=== PATIENT | male | born 1985 | race Caucasian/White ===

== ENCOUNTER 2025-04-13 13:06 | Emergency (ER) | payer OTHER ==
[~2025-04-13] VITALS: Ht 182.9 cm; Wt 100.8 kg
[2025-04-13 13:21] VITALS: TEMP 97.8
[2025-04-13] MEDS ORDERED: METO37.5 PO (13:27)
[2025-04-13] MEDS ORDERED: AMLO25TA PO (13:27)
[2025-04-13] MEDS ORDERED: BUSP5TA PO (13:27)
[2025-04-13] MEDS ORDERED: HYDR-3363 PO (13:27)
[2025-04-13] MEDS ORDERED: LISI30TA4 PO (13:27)
[2025-04-13] MEDS ORDERED: PANT20TA6 PO (13:27)
[2025-04-13] MEDS ORDERED: NITROGLYCERIN 0.4MG SUBL TABLET SL PRN (13:45)
[2025-04-13] MEDS: LIDOCAINE VISCOUS 2% SOLN 15 ML UDC PO ONE (13:53)
[2025-04-13] MEDS: MAALOX 30 ML SUSP *UDC PO ONE (13:53)
[2025-04-13 13:58] LABS: BASO # 0.0 10^3/uL (0.0-0.2); BASO % 0.4 % (0.0-1.0); EOS # 0.0 10^3/uL (0.0-0.5); EOS % 0.4 % (0.0-3.0); LYMPH # 1.3 10^3/uL (1.5-5.0); LYMPH % 26.2 % (24.0-44.0); MONO # 0.4 10^3/uL (0.0-0.8); MONO % 7.2 % (2.0-8.0); NEUTROPHILS # 3.2 10^3/uL (1.5-8.5); NEUTROPHILS % 65.6 % (36.0-66.0); PLATELET COUNT, AUTOMATED 236 10^3/uL (150-450)
[2025-04-13 14:26] LABS: ALT/SGPT 26 U/L (7.0-40); AST/SGOT 22 U/L (<34); CALCIUM LEVEL 9.7 MG/DL (8.5-10.1); CARBON DIOXIDE LEVEL 24 MMOL/L (20-31); CHLORIDE LEVEL 107 MMOL/L (98-107); CK-MB VALUE MASS < 1.0 NG/ML (<3.6); CREATININE FOR GFR 0.98 MG/DL (0.70-1.30); GLOMERULAR FILTRATION RATE > 90.0 (>60); MAGNESIUM LEVEL 2.2 MG/DL (1.8-2.4); PHOSPHORUS LEVEL 3.1 MG/DL (2.5-4.9); POTASSIUM SERUM 4.2 MMOL/L (3.5-5.1); SODIUM LEVEL 141 MMOL/L (136-145)
[2025-04-13 14:29] LABS: FREE T4 1.38 NG/DL (0.89-1.76)
[2025-04-13 14:31] LABS: CPK CREATINE PHOSPHOKINASE 107 U/L (46-171)
[2025-04-13] MEDS ORDERED: ISOVUE-370 76% 100 ML VIAL As Ordered ONE (14:48)
[2025-04-13 15:39] LABS: CK-MB VALUE MASS 1.0 NG/ML (<3.6)
[2025-04-13 15:47] LABS: CPK CREATINE PHOSPHOKINASE 91 U/L (46-171); MB/CK RELATIVE INDEX 1.09 (< OR =4)
[2025-04-13 16:00] VITALS: O2SAT 98
[2025-04-13] MEDS: LORazepam 0.5 MG TAB PO PRN (16:08)
[2025-04-13 16:10] VITALS: BP 123/78
== END 2025-04-13 16:22 | disposition home or self-care (01) ==
LOC: EDBD 13:06 → M ED 13:06
DX: R07.9 Chest pain, unspecified (principal); I10 Essential (primary) hypertension
CPT/HCPCS: 71046; 71275; 80048; 80076; 82550; 82553; 83735; 84100; 84439; 84443; 84484; 85025; 93005; 93041; 94760; 99285; Q9967

== ENCOUNTER 2025-04-16 14:34 | Emergency (ER) | payer OTHER ==
[~2025-04-16] VITALS: Ht 182.9 cm; Wt 100.0 kg
[~2025-04-16 14:34] MED LIST: AMLO25TA PO; BUSP5TA PO; HYDR-3363 PO; LISI30TA4 PO; METO37.5 PO; PANT20TA6 PO
[2025-04-16 15:15] LABS: BASO # 0.0 10^3/uL (0.0-0.2); BASO % 0.5 % (0.0-1.0); EOS # 0.0 10^3/uL (0.0-0.5); EOS % 0.5 % (0.0-3.0); LYMPH # 1.1 10^3/uL (1.5-5.0); LYMPH % 14.9 % (24.0-44.0); MONO # 0.4 10^3/uL (0.0-0.8); MONO % 5.2 % (2.0-8.0); NEUTROPHILS # 6.0 10^3/uL (1.5-8.5); NEUTROPHILS % 78.5 % (36.0-66.0); PLATELET COUNT, AUTOMATED 229 10^3/uL (150-450)
[2025-04-16 15:18] VITALS: TEMP 98.5
[2025-04-16] MEDS: LIDOCAINE VISCOUS 2% SOLN 15 ML UDC PO ONE (15:24)
[2025-04-16] MEDS: MAALOX 30 ML SUSP *UDC PO ONE (15:24)
[2025-04-16] MEDS: PANTOPRAZOLE 40MG VIAL IV ONE (15:24)
[2025-04-16 15:36] LABS: CK-MB VALUE MASS < 1.0 NG/ML (<3.6); ERYTHROCYTE SEDIMENTATION RATE 3 mm/hr (0-15)
[2025-04-16 15:39] LABS: CALCIUM LEVEL 9.8 MG/DL (8.5-10.1); CARBON DIOXIDE LEVEL 27 MMOL/L (20-31); CHLORIDE LEVEL 105 MMOL/L (98-107); CPK CREATINE PHOSPHOKINASE 115 U/L (46-171); CREATININE FOR GFR 1.11 MG/DL (0.70-1.30); GLOMERULAR FILTRATION RATE 85.0 (>60); POTASSIUM SERUM 4.2 MMOL/L (3.5-5.1); SODIUM LEVEL 142 MMOL/L (136-145)
[2025-04-16 17:00] VITALS: BP 111/64
[2025-04-16 17:01] VITALS: O2SAT 99
== END 2025-04-16 17:10 | disposition home or self-care (01) ==
LOC: M ED 14:34 → EDBD 14:34 → M ED 17:10
DX: R07.9 Chest pain, unspecified (principal); I10 Essential (primary) hypertension
CPT/HCPCS: 71045; 80048; 82550; 82553; 84484; 85025; 85652; 93005; 93041; 94760; 96374; 99285; J2470

== ENCOUNTER 2025-04-17 18:19 | Emergency (ER) | payer OTHER ==
[~2025-04-17] VITALS: Ht 182.9 cm; Wt 99.1 kg
[2025-04-18] MEDS: NS (Normal Saline) 0.9% 1,000 ML IV ONE (02:56)
[2025-04-18] MEDS: PANTOPRAZOLE 40MG VIAL IV ONE (02:56)
[2025-04-18 02:58] LABS: BASO # 0.0 10^3/uL (0.0-0.2); BASO % 0.3 % (0.0-1.0); EOS # 0.0 10^3/uL (0.0-0.5); EOS % 0.6 % (0.0-3.0); LYMPH # 1.6 10^3/uL (1.5-5.0); LYMPH % 22.9 % (24.0-44.0); MONO # 0.5 10^3/uL (0.0-0.8); MONO % 6.7 % (2.0-8.0); NEUTROPHILS # 4.8 10^3/uL (1.5-8.5); NEUTROPHILS % 69.2 % (36.0-66.0); PLATELET COUNT, AUTOMATED 227 10^3/uL (150-450)
[2025-04-18 03:29] LABS: CALCIUM LEVEL 8.8 MG/DL (8.5-10.1); CARBON DIOXIDE LEVEL 27 MMOL/L (20-31); CHLORIDE LEVEL 105 MMOL/L (98-107); CREATININE FOR GFR 1.03 MG/DL (0.70-1.30); GLOMERULAR FILTRATION RATE > 90.0 (>60); MAGNESIUM LEVEL 2.3 MG/DL (1.8-2.4); PHOSPHORUS LEVEL 3.4 MG/DL (2.5-4.9); POTASSIUM SERUM 4.2 MMOL/L (3.5-5.1); SODIUM LEVEL 143 MMOL/L (136-145)
[2025-04-18] MEDS ORDERED: PILL CUTTER 1 EACH XX ONE (05:28)
[2025-04-18 05:33] VITALS: BP 131/86
[2025-04-18] MEDS: METOPROLOL TART 25 MG TABLET PO ONE (05:33)
[2025-04-18] MEDS: ALPRAZolam 0.5 MG TAB PO ONE (05:48)
[2025-04-18 07:01] LABS: APPEARANCE, URINE HAZY (CLEAR); BACTERIA, URINE AUTO NEGATIVE (NEGATIVE); BILIRUBIN, URINE AUTO NEGATIVE (NEGATIVE); BLOOD, URINE BLOOD NEGATIVE (NEGATIVE); GLUCOSE, URINE (UA) AUTO NEGATIVE (NEGATIVE); KETONE, URINE AUTO 2+ mg/dL (NEGATIVE); LEUKOCYTE ESTERASE, URINE AUTO NEGATIVE (NEGATIVE); MUCUS, URINE SMALL (NEGATIVE); NITRITE, URINE AUTO NEGATIVE (NEGATIVE); PROTEIN, URINE AUTO NEGATIVE (NEGATIVE); RBC, URINE AUTO 0 /HPF (0-3); SPECIFIC GRAVITY URINE AUTO 1.021 (1.002-1.035); SQUAMOUS EPITHELIAL CELL UR AU 0 /HPF (0-6); UROBILINOGEN, URINE AUTO 0.2 mg/dL (0.0-2.0); WBC, URINE AUTO 0 /HPF (0-3)
[2025-04-18 07:08] LABS: CK-MB VALUE MASS < 1.0 NG/ML (<3.6)
[2025-04-18 07:09] LABS: CPK CREATINE PHOSPHOKINASE 80 U/L (46-171)
[2025-04-18 07:45] VITALS: BP 114/69; TEMP 97; O2SAT 98
[2025-04-23 11:56] LABS: BORRELIA SPECIES DNA NOT DETECTED (NOT DETECT)
== END 2025-04-18 07:58 | disposition home or self-care (01) ==
LOC: M ED 18:19
DX: T88.7XXA Unspecified adverse effect of drug or medicament, initial encounter (principal); Y92.9 Unspecified place or not applicable; Y93.9 Activity, unspecified; I10 Essential (primary) hypertension; K21.9 Gastro-esophageal reflux disease without esophagitis; F41.9 Anxiety disorder, unspecified
CPT/HCPCS: 71046; 80048; 81001; 82550; 82553; 83735; 84100; 84484; 85025; 87468; 87469; 87478; 87484; 87486; 87581; 87633; 87798; 87801; 93005; 96361; 96374; 99285; J2470

== ENCOUNTER → 2025-05-13 | Outpatient (REF) | payer OTHER ==
[2025-05-13 13:31] LABS: APPEARANCE, URINE HAZY (CLEAR); BACTERIA, URINE AUTO NEGATIVE (NEGATIVE); BILIRUBIN, URINE AUTO NEGATIVE (NEGATIVE); BLOOD, URINE BLOOD NEGATIVE (NEGATIVE); CALCIUM OXALATE CRYSTALS SMALL; GLUCOSE, URINE (UA) AUTO NEGATIVE (NEGATIVE); KETONE, URINE AUTO NEGATIVE (NEGATIVE); LEUKOCYTE ESTERASE, URINE AUTO NEGATIVE (NEGATIVE); MUCUS, URINE LARGE (NEGATIVE); NITRITE, URINE AUTO NEGATIVE (NEGATIVE); PROTEIN, URINE AUTO 1+ mg/dL (NEGATIVE); RBC, URINE AUTO 0 /HPF (0-3); SPECIFIC GRAVITY URINE AUTO 1.028 (1.002-1.035); SQUAMOUS EPITHELIAL CELL UR AU 0 /HPF (0-6); UROBILINOGEN, URINE AUTO 2.0 mg/dL (0.0-2.0); WBC, URINE AUTO 3 /HPF (0-3)
== END ==
LOC: M SMT 12:41
PROVIDERS: ATTEND Nurse Practitioner Family
DX: N40.1 Benign prostatic hyperplasia with lower urinary tract symptoms (principal)

== ENCOUNTER → 2025-05-16 | Outpatient (CLI) | payer OTHER ==
[2025-05-16 13:41] LABS: BASO # 0.0 10^3/uL (0.0-0.2); BASO % 0.6 % (0.0-1.0); EOS # 0.1 10^3/uL (0.0-0.5); EOS % 2.1 % (0.0-3.0); LYMPH # 1.2 10^3/uL (1.5-5.0); LYMPH % 35.5 % (24.0-44.0); MONO # 0.4 10^3/uL (0.0-0.8); MONO % 10.4 % (2.0-8.0); NEUTROPHILS # 1.7 10^3/uL (1.5-8.5); NEUTROPHILS % 51.4 % (36.0-66.0); PLATELET COUNT, AUTOMATED 214 10^3/uL (150-450)
[2025-05-16 13:43] LABS: RHEUMATOID FACTOR QUANT 9.4 IU/ML (<14)
[2025-05-16 13:44] LABS: ALT/SGPT 28 U/L (7.0-40); AST/SGOT 16 U/L (<34); CALCIUM LEVEL 9.1 MG/DL (8.5-10.1); CARBON DIOXIDE LEVEL 29 MMOL/L (20-31); CHLORIDE LEVEL 105 MMOL/L (98-107); CREATININE FOR GFR 1.06 MG/DL (0.70-1.30); GLOMERULAR FILTRATION RATE 89.9 (>60); POTASSIUM SERUM 4.1 MMOL/L (3.5-5.1); SODIUM LEVEL 142 MMOL/L (136-145)
[2025-05-16 13:47] LABS: THYROXINE (T4) 8.2 UG/DL (4.5-10.9); VITAMIN B12 LEVEL 434 PG/ML (211-911)
[2025-05-16 13:48] LABS: T UPTAKE 35.0 % (22.5-37.0)
[2025-05-16 13:52] LABS: ERYTHROCYTE SEDIMENTATION RATE 3 mm/hr (0-15)
[2025-05-16 14:56] LABS: ESTIMATED AVERAGE GLUCOSE 100.0 MG/DL (60-110)
[2025-05-17 10:52] LABS: T P ELECTROPHORESIS SO 6.9 g/dL (6.1-8.1)
[2025-05-17 15:01] LABS: SSA SJOGRENS A <1.0 NEG AI (<1.0 NEG); SSB SJOGRENS B <1.0 NEG AI (<1.0 NEG)
[2025-05-20 07:51] LABS: ALBUMIN SPEP 4.5 g/dL (3.8-4.8); ALPHA-1-GLOBULINS SO 0.3 g/dL (0.2-0.3); ALPHA-2-GLOBULINS SO 0.5 g/dL (0.5-0.9); BETA 2 GLOBULIN 0.4 g/dL (0.2-0.5); BETA-GLOBULIN SO 0.4 g/dL (0.4-0.6); GAMMA GLOBULINS SO 0.8 g/dL (0.8-1.7)
[2025-05-21 02:45] LABS: VITAMIN E(ALPHA TOCOPHEROL) 6.2 mg/L (5.7-19.9); VITAMIN E(GAMMA TOCOPHEROL) < 1.0 mg/L (<=4.3)
[2025-05-21 14:46] LABS: LYME TOTAL ANTIBODY CIA <= 0.90 Index (<=0.90)
[2025-05-21 18:34] LABS: VITAMIN B1 LEVEL WHOLE BLOOD 145 nmol/L (78-185)
== END ==
LOC: M PLALAB 09:32
PROVIDERS: ATTEND Psychiatry & Neurology Neurology
DX: E11.9 Type 2 diabetes mellitus without complications (principal); E53.8 Deficiency of other specified B group vitamins; E07.9 Disorder of thyroid, unspecified; A69.20 Lyme disease, unspecified

== ENCOUNTER 2025-06-20 10:42 | Day surgery (SDC) | payer OTHER ==
[~2025-06-20] VITALS: Ht 182.9 cm; Wt 93.0 kg
[~2025-06-20 10:42] MED LIST changes: +DULO1CAP4 PO; +PRED20TA PO; +SUCR1TAB56 PO; +TAMS-18 PO
[2025-06-20] MEDS ORDERED: LIDOCAINE 2% 100 MG/5 ML SDV (FOR ANES.) As Ordered ONE (11:59)
[2025-06-20 12:01] VITALS: TEMP 97.8
[2025-06-20 12:36] VITALS: BP 125/86; O2SAT 97
== END 2025-06-20 12:40 | disposition home or self-care (01) ==
LOC: M OPP 10:42
PROVIDERS: ATTEND Surgery
DX: K44.9 Diaphragmatic hernia without obstruction or gangrene (principal); Z79.52 Long term (current) use of systemic steroids; Z79.899 Other long term (current) drug therapy
CPT/HCPCS: 43239; 88305; J3010

== ENCOUNTER 2025-06-30 03:29 | Emergency (ER) | payer OTHER ==
[~2025-06-30] VITALS: Ht 182.9 cm; Wt 97.5 kg
[2025-06-30 04:11] LABS: BASO # 0.0 10^3/uL (0.0-0.2); BASO % 0.6 % (0.0-1.0); EOS # 0.1 10^3/uL (0.0-0.5); EOS % 2.8 % (0.0-3.0); LYMPH # 1.8 10^3/uL (1.5-5.0); LYMPH % 37.5 % (24.0-44.0); MONO # 0.4 10^3/uL (0.0-0.8); MONO % 7.6 % (2.0-8.0); NEUTROPHILS # 2.4 10^3/uL (1.5-8.5); NEUTROPHILS % 51.1 % (36.0-66.0); PLATELET COUNT, AUTOMATED 228 10^3/uL (150-450)
[2025-06-30] MEDS: ONDANSETRON 4MG 2ML VIAL IV ONE (04:29)
[2025-06-30 04:37] LABS: CK-MB VALUE MASS 1.1 NG/ML (<3.6)
[2025-06-30 04:39] LABS: CPK CREATINE PHOSPHOKINASE 93 U/L (46-171)
[2025-06-30 04:40] LABS: ALT/SGPT 23 U/L (7.0-40); AST/SGOT 15 U/L (<34); CALCIUM LEVEL 8.5 MG/DL (8.5-10.1); CARBON DIOXIDE LEVEL 27 MMOL/L (20-31); CHLORIDE LEVEL 106 MMOL/L (98-107); CK-MB VALUE MASS 1.2 NG/ML (<3.6); CREATININE FOR GFR 1.04 MG/DL (0.70-1.30); GLOMERULAR FILTRATION RATE > 90.0 (>60); MB/CK RELATIVE INDEX 1.29 (< OR =4); POTASSIUM SERUM 3.9 MMOL/L (3.5-5.1); SODIUM LEVEL 142 MMOL/L (136-145)
[2025-06-30 04:43] LABS: CPK CREATINE PHOSPHOKINASE 98 U/L (46-171); MB/CK RELATIVE INDEX 1.12 (< OR =4)
[2025-06-30 05:37] LABS: CK-MB VALUE MASS 1.0 NG/ML (<3.6)
[2025-06-30 05:38] LABS: CPK CREATINE PHOSPHOKINASE 88 U/L (46-171); MB/CK RELATIVE INDEX 1.13 (< OR =4)
[2025-06-30 06:46] VITALS: BP 140/98; TEMP 97.7; O2SAT 97
== END 2025-06-30 06:53 | disposition home or self-care (01) ==
LOC: M ED 03:29
DX: I10 Essential (primary) hypertension (principal); R07.89 Other chest pain; Z79.899 Other long term (current) drug therapy
CPT/HCPCS: 71045; 80048; 80076; 82550; 82553; 83880; 84484; 85025; 85379; 93005; 93041; 94760; 96374; 99285; J2405

== ENCOUNTER 2025-07-21 06:44 | Emergency (ER) | payer OTHER ==
[~2025-07-21] VITALS: Ht 182.9 cm; Wt 94.6 kg
[2025-07-21 06:46] VITALS: TEMP 97.8
[2025-07-21 08:35] LABS: BASO # 0.0 10^3/uL (0.0-0.2); BASO % 0.5 % (0.0-1.0); EOS # 0.1 10^3/uL (0.0-0.5); EOS % 1.0 % (0.0-3.0); LYMPH # 1.2 10^3/uL (1.5-5.0); LYMPH % 20.5 % (24.0-44.0); MONO # 0.4 10^3/uL (0.0-0.8); MONO % 6.6 % (2.0-8.0); NEUTROPHILS # 4.2 10^3/uL (1.5-8.5); NEUTROPHILS % 71.2 % (36.0-66.0); PLATELET COUNT, AUTOMATED 207 10^3/uL (150-450)
[2025-07-21 09:07] LABS: CK-MB VALUE MASS < 1.0 NG/ML (<3.6)
[2025-07-21 09:10] LABS: ALT/SGPT 18 U/L (7.0-40); AST/SGOT 13 U/L (<34); CALCIUM LEVEL 8.9 MG/DL (8.5-10.1); CARBON DIOXIDE LEVEL 26 MMOL/L (20-31); CHLORIDE LEVEL 107 MMOL/L (98-107); CREATININE FOR GFR 0.94 MG/DL (0.70-1.30); GLOMERULAR FILTRATION RATE > 90.0 (>60); POTASSIUM SERUM 4.0 MMOL/L (3.5-5.1); SODIUM LEVEL 144 MMOL/L (136-145)
[2025-07-21 09:11] LABS: FREE T4 1.60 NG/DL (0.89-1.76)
[2025-07-21 09:18] LABS: CPK CREATINE PHOSPHOKINASE 113 U/L (46-171)
[2025-07-21 10:31] LABS: CK-MB VALUE MASS < 1.0 NG/ML (<3.6)
[2025-07-21 10:32] LABS: CPK CREATINE PHOSPHOKINASE 111 U/L (46-171)
[2025-07-21 10:55] VITALS: BP 138/87; O2SAT 99
== END 2025-07-21 11:06 | disposition home or self-care (01) ==
LOC: M ED 06:44
DX: R07.9 Chest pain, unspecified (principal); R25.1 Tremor, unspecified; I45.10 Unspecified right bundle-branch block; J45.909 Unspecified asthma, uncomplicated; I10 Essential (primary) hypertension; Z88.8 Allergy status to other drugs, medicaments and biological substances; Z79.899 Other long term (current) drug therapy

== ENCOUNTER → 2025-08-20 | Outpatient (CLI) | payer OTHER ==
[2025-08-20 15:14] LABS: BASO # 0.0 10^3/uL (0.0-0.2); BASO % 0.5 % (0.0-1.0); EOS # 0.0 10^3/uL (0.0-0.5); EOS % 0.7 % (0.0-3.0); LYMPH # 1.3 10^3/uL (1.5-5.0); LYMPH % 31.0 % (24.0-44.0); MONO # 0.4 10^3/uL (0.0-0.8); MONO % 9.6 % (2.0-8.0); NEUTROPHILS # 2.4 10^3/uL (1.5-8.5); NEUTROPHILS % 58.0 % (36.0-66.0); PLATELET COUNT, AUTOMATED 242 10^3/uL (150-450)
[2025-08-20 15:32] LABS: ALT/SGPT 24 U/L (7.0-40); AST/SGOT 14 U/L (<34); CALCIUM LEVEL 8.7 MG/DL (8.5-10.1); CARBON DIOXIDE LEVEL 28 MMOL/L (20-31); CHLORIDE LEVEL 106 MMOL/L (98-107); CREATININE FOR GFR 1.05 MG/DL (0.70-1.30); FREE T4 1.54 NG/DL (0.89-1.76); GLOMERULAR FILTRATION RATE > 90.0 (>60); IRON (FE) 65 UG/DL (65-175); MAGNESIUM LEVEL 2.3 MG/DL (1.8-2.4); PERCENT SATURATION 18.7 % (19.7-50.0); POTASSIUM SERUM 3.8 MMOL/L (3.5-5.1); SODIUM LEVEL 143 MMOL/L (136-145)
[2025-08-20 15:33] LABS: VITAMIN B12 LEVEL 435 PG/ML (211-911)
== END ==
LOC: M PLALAB 12:32
PROVIDERS: ATTEND Internal Medicine Cardiovascular Disease
DX: I10 Essential (primary) hypertension (principal); R07.89 Other chest pain

== ENCOUNTER → 2025-09-09 | Outpatient (CLI) | payer OTHER ==
[2025-09-09 13:52] LABS: PLATELET COUNT, AUTOMATED 237 10^3/uL (150-450)
[2025-09-09 14:32] LABS: CALCIUM LEVEL 9.1 MG/DL (8.5-10.1); CARBON DIOXIDE LEVEL 30 MMOL/L (20-31); CHLORIDE LEVEL 104 MMOL/L (98-107); CREATININE FOR GFR 1.03 MG/DL (0.70-1.30); GLOMERULAR FILTRATION RATE > 90.0 (>60); POTASSIUM SERUM 4.0 MMOL/L (3.5-5.1); SODIUM LEVEL 144 MMOL/L (136-145)
== END ==
LOC: M PLALAB 11:57
PROVIDERS: ATTEND Urology
DX: N35.919 Unspecified urethral stricture, male, unspecified site (principal)

== ENCOUNTER → 2025-09-19 | Outpatient (CLI) | payer OTHER ==
[~2025-09-19] MED LIST changes: +CARV12.5; +FLUT1BLS6; +HYDR12.55
== END ==
LOC: M RAD 15:03
PROVIDERS: ATTEND Physician Assistant
DX: R91.8 Other nonspecific abnormal finding of lung field (principal)

== ENCOUNTER 2025-10-07 08:32 | Observation (INO) | payer OTHER ==
[~2025-10-07] VITALS: Ht 182.9 cm; Wt 95.0 kg
[~2025-10-07 08:32] MED LIST changes: -FLUT1BLS6; +FLUT1BLS6 INH; -HYDR12.55; +HYDR12.55 PO; +LIDOCAINE 2% 100 MG/5 ML SDV (FOR ANES.) As Ordered ONE; +MIDAZOLAM INJ 2 MG/2 ML VIAL As Ordered ONE
[2025-10-07] MEDS ORDERED: ASPI325T57 PO (09:09)
[2025-10-07] MEDS ORDERED: COLC0.6T53 PO (09:09)
[2025-10-07] MEDS ORDERED: LOPR1TAB7 PO (09:09)
[2025-10-07] MEDS: LR 1,000 ML IV SCH (09:23)
[2025-10-07] MEDS ORDERED: ACETAMINOPHEN 1000MG/100ML IV BAG As Ordered ONE (09:24)
[2025-10-07] MEDS: ceFAZolin SOD 2 GM IV ONCE IV ONE (10:13)
[2025-10-07] MEDS ORDERED: METOPROLOL 5 MG/5 ML VIAL As Ordered ONE (10:19)
[2025-10-07] MEDS ORDERED: MORPHINE 2 MG/ML 1 ML VIAL IV PRN (11:00)
[2025-10-07] MEDS ORDERED: HYDROMORPHONE HCL 0.5 MG/0.5 ML SYRINGE IV PRN (11:00)
[2025-10-07] MEDS ORDERED: ONDANSETRON 4MG/2ML VIAL IV PRN ×2 (11:00→14:55)
[2025-10-07] MEDS ORDERED: CIPR-249 PO (11:16)
[2025-10-07] MEDS ORDERED: ATIV1TAB10 PO (11:16)
[2025-10-07] MEDS: METOPROLOL 5 MG/5 ML VIAL IV PRN (11:31)
[2025-10-07] MEDS: LABETALOL 100 MG/20 ML VIAL IV PRN (14:04)
[2025-10-07 15:08] LABS: PLATELET COUNT, AUTOMATED 247 10^3/uL (150-450)
[2025-10-07] MEDS: HYDROMORPHONE HCL 0.5 MG/0.5 ML SYRINGE IV PRN (15:08)
[2025-10-07 15:31] LABS: ALT/SGPT 47.0 U/L (7.0-40); AST/SGOT 47.0 U/L (<34); CALCIUM LEVEL 8.9 MG/DL (8.5-10.1); CARBON DIOXIDE LEVEL 26.0 MMOL/L (20-31); CHLORIDE LEVEL 104.0 MMOL/L (98-107); CREATININE FOR GFR 1.26 MG/DL (0.70-1.30); GLOMERULAR FILTRATION RATE 73.0 (>60); POTASSIUM SERUM 3.9 MMOL/L (3.5-5.1); SODIUM LEVEL 140.0 MMOL/L (136-145)
[2025-10-07 16:15] VITALS: BP 146/86; TEMP 98.8; O2SAT 97
[2025-10-07] MEDS: FAMOTIDINE 20 MG TAB PO ONE ×2 (17:31→17:32)
[2025-10-07] MEDS ORDERED: LOSA100T5 PO (17:32)
[2025-10-07] MEDS ORDERED: BISO5TAB14 PO (17:32)
[2025-10-07] MEDS ORDERED: CARV12.5 PO (17:32)
[2025-10-07] MEDS ORDERED: METO1TAB33 PO (17:32)
[2025-10-07] MEDS ORDERED: FAMO40TA3 PO (18:06)
[2025-10-07] MEDS ORDERED: HOME MED LIST COMPLETE! XX SCH (18:10)
[2025-10-07 18:14] VITALS: BP 160/90; TEMP 98.9; O2SAT 97
[2025-10-07 19:56] VITALS: BP 151/81; TEMP 98.7; O2SAT 95
[2025-10-07] MEDS: ADVAIR HFA 230/21 MCG INHALER INH SCH (20:00)
[2025-10-07] MEDS: FAMOTIDINE 20 MG TAB PO SCH (21:55)
[2025-10-07] MEDS: COLCHICINE 0.6 MG TABLET PO SCH (21:55)
[2025-10-07 23:44] VITALS: BP 126/87; TEMP 98.3; O2SAT 97
[2025-10-08] MEDS: BACLOFEN 10 MG TAB PO ONE (01:57)
[2025-10-08 04:00] VITALS: BP 129/82; TEMP 98; O2SAT 97
[2025-10-08 06:48] LABS: PLATELET COUNT, AUTOMATED 208 10^3/uL (150-450)
[2025-10-08 07:22] LABS: ALT/SGPT 35 U/L (7.0-40); AST/SGOT 30 U/L (<34); CALCIUM LEVEL 9.2 MG/DL (8.5-10.1); CARBON DIOXIDE LEVEL 28 MMOL/L (20-31); CHLORIDE LEVEL 103 MMOL/L (98-107); CREATININE FOR GFR 1.02 MG/DL (0.70-1.30); GLOMERULAR FILTRATION RATE > 90.0 (>60); POTASSIUM SERUM 3.7 MMOL/L (3.5-5.1); SODIUM LEVEL 141 MMOL/L (136-145)
[2025-10-08 07:34] VITALS: BP 132/86; TEMP 98.5; O2SAT 98
[2025-10-08] MEDS: ASPIRIN 325 MG TAB PO SCH (08:22)
[2025-10-08] MEDS: LORazepam 0.5 MG TAB PO STA (08:22)
[2025-10-08 08:23] VITALS: BP 132/86
[2025-10-08] MEDS: METOPROLOL SUCC. 100 MG *XL* TAB PO SCH (08:23)
[2025-10-08] MEDS ORDERED: REGL10TA6 PO (09:20)
[2025-10-08 12:07] VITALS: BP 142/96; TEMP 98; O2SAT 95
== END 2025-10-08 12:08 | disposition home or self-care (01) ==
LOC: M SDC 08:32 → M RR INP 08:33 → M PCU 16:09
PROVIDERS: ADMIT Internal Medicine; ATTEND Internal Medicine
DX: I16.0 Hypertensive urgency (principal); N35.919 Unspecified urethral stricture, male, unspecified site; I10 Essential (primary) hypertension; K21.9 Gastro-esophageal reflux disease without esophagitis; F41.9 Anxiety disorder, unspecified; N40.0 Benign prostatic hyperplasia without lower urinary tract symptoms; Z88.8 Allergy status to other drugs, medicaments and biological substances; J45.909 Unspecified asthma, uncomplicated; Z79.899 Other long term (current) drug therapy
CPT/HCPCS: 36415; 52276; 70544; 70551; 80053; 85027; 93880; 94640; J0131; J0616; J0688; J1171; J1920; J2060; J2250; J3010